=== PATIENT | male | born 1985 | race African-American/Black ===

== ENCOUNTER 2016-04-04 21:26 | Inpatient (IN) | payer MEDICAID ==
[~2016-04-04] VITALS: Ht 177.8 cm; Wt 77.0 kg
[~2016-04-04 21:26] MED LIST: OLAN15TA2 PO
[2016-04-04 22:50] LABS: BASOPHILS % (AUTO) 0.4 % (0.0-2.0); EOSINOPHILS % (AUTO) 3.1 % (1.0-6.0); HEMATOCRIT 38.8 % (41-53); HEMOGLOBIN 12.7 g/dL (13.5-17.5); LYMPHOCYTES # (AUTO) 1.4 K/uL (1.0-4.8); LYMPHOCYTES % (AUTO) 19.3 % (22.0-44.0); MEAN CORPUSCULAR HEMOGLOBIN 28.9 pg (26.0-34.0); MEAN CORPUSCULAR HGB CONC 32.8 G/dL (31.0-37.0); MEAN CORPUSCULAR VOLUME 88 fL (80-100); MONOCYTES # (AUTO) 0.9 K/uL (0.1-1.0); MONOCYTES % (AUTO) 11.7 % (2.0-9.0); NEUTROPHILS # (AUTO) 4.8 K/uL (1.8-7.7); NEUTROPHILS % (AUTO) 65.5 % (40.0-70.0); PLATELET COUNT (AUTO) 211 K/uL (150-450); RED BLOOD CELL COUNT(AUTO) 4.41 MIL/uL (4.50-5.90); RED CELL DISTRIBUTION WIDTH 14.6 % (11.5-14.5); WHITE BLOOD COUNT (AUTO) 7.3 K/uL (4.5-11.0)
[2016-04-04 23:05] LABS: ANION GAP 9 mmol/L (8-16); CARBON DIOXIDE 28 mmol/L (22-29); CHLORIDE 106 mmol/L (98-107); CREATININE 0.97 mg/dL (0.60-1.30); GLOMERULAR FILTR. RATE CALC > 60 mL/min (>60); POTASSIUM 3.9 mmol/L (3.5-5.1); SODIUM SERUM 143 mmol/L (136-145); UREA NITROGEN, BLOOD 17 mg/dL (7-18)
[2016-04-04 23:10] LABS: ALANINE AMINOTRANSFERASE 37 U/L (12-78); ALBUMIN 3.7 g/dL (3.4-5.0); ASPARTATE AMINOTRANSFERASE 29 U/L (15-37); BILIRUBIN,TOTAL 0.1 mg/dL (0.1-1.0); TOTAL PROTEIN, SERUM 7.7 g/dL (6.4-8.2)
[2016-04-04] MEDS ORDERED: DiphenhydrAMINE HCL 50 MG/ML VIAL IM ONE (23:45)
[2016-04-04] MEDS ORDERED: HALOPERIDOL LACTATE 5 MG/ML VIAL IM ONE (23:45)
[2016-04-04] MEDS ORDERED: LORazepam 2 MG/ML VIAL IM ONE (23:45)
[2016-04-05] MEDS ORDERED: OLANZapine 5 MG RAPDIS TABLET PO PRN
[2016-04-05] MEDS ORDERED: ZOLPIDEM TARTRATE 10 MG TABLET PO PRN
[2016-04-05 01:12] VITALS: BP 125/58
[2016-04-05] MEDS ORDERED: INFLUENZA VIRUS VACCINE QVS 2016-17 (3YR+)/PF 60 MCG/0.5 ML SYRINGE IM ONE (03:15)
[2016-04-05 08:16] VITALS: BP 116/68
[2016-04-05] MEDS ORDERED: GuaiFENesin/D-METHORPHAN [SUGAR-FREE] 200-20MG/10 ML SYRUP UDCUP PO PRN (13:15)
[2016-04-05] MEDS ORDERED: HydrOXYzine PAMOATE 50 MG CAPSULE PO PRN (13:15)
[2016-04-05] MEDS ORDERED: ACETAMINOPHEN 325 MG TABLET PO PRN (13:15)
[2016-04-05] MEDS ORDERED: LOPERAMIDE HCL 2 MG CAPSULE PO PRN (13:15)
[2016-04-05] MEDS ORDERED: TUBERCULIN, PURIFIED PROTEIN DERIVATIVE 5 TU/0.1 ML SYG ID ONE (13:15)
[2016-04-05] MEDS ORDERED: MAG HYDROX/AL HYDROX/SIMETH ES 30 ML SUSPENSION UDCUP PO PRN (13:15)
[2016-04-05] MEDS ORDERED: MAGNESIUM HYDROXIDE SUSPENSION 30 ML UDCUP PO PRN (13:15)
[2016-04-05] MEDS ORDERED: PROMETHAZINE HCL 25 MG TABLET PO PRN (13:15)
[2016-04-05 16:27] VITALS: BP 127/71
[2016-04-05] MEDS: THIAMINE HCL 100 MG TABLET PO SCH (17:23)
[2016-04-05] MEDS ORDERED: OLANZapine 5 MG RAPDIS TABLET PO SCH (21:00)
[2016-04-06 07:01] VITALS: BP 114/62
[2016-04-06 08:15] VITALS: BP 108/57
[2016-04-06] MEDS: NALTREXONE HCL 50 MG TABLET PO SCH (10:34)
[2016-04-06] MEDS: THIAMINE HCL 100 MG TABLET PO SCH ×2 (10:34→16:45)
[2016-04-06] MEDS: FOLIC ACID 1 MG TABLET PO SCH (10:34)
[2016-04-06] MEDS: MULTIVITAMINS WITH MINERALS, THERAPEUTIC TABLET PO SCH (10:34)
[2016-04-06] MEDS ORDERED: OLAN10TA22 PO (15:19)
[2016-04-06] MEDS ORDERED: NALT50 PO (15:19)
[2016-04-06 16:15] VITALS: BP 112/67
[2016-04-06] MEDS: LORazepam 2 MG TABLET PO PRN (16:45)
[2016-04-06] MEDS ORDERED: OLANZapine 10 MG RAPDIS TABLET PO SCH (21:00)
[2016-04-07 06:34] VITALS: BP 109/78
[2016-04-07 08:28] VITALS: BP 125/68
[2016-04-07] MEDS: MULTIVITAMINS WITH MINERALS, THERAPEUTIC TABLET PO SCH (08:49)
[2016-04-07] MEDS: NALTREXONE HCL 50 MG TABLET PO SCH (08:49)
[2016-04-07] MEDS: LORazepam 2 MG TABLET PO PRN (08:50)
[2016-04-07] MEDS: FOLIC ACID 1 MG TABLET PO SCH (08:50)
[2016-04-07] MEDS: THIAMINE HCL 100 MG TABLET PO SCH (08:50)
== END 2016-04-07 11:19 | disposition home or self-care (01) | DRG 750 ==
LOC: EMS 21:27 → B3A 23:56
PROVIDERS: ADMIT Psychiatry & Neurology Psychiatry; ATTEND Psychiatry & Neurology Psychiatry
DX: F20.0 Paranoid schizophrenia (principal); F15.20 Other stimulant dependence, uncomplicated; E03.9 Hypothyroidism, unspecified; F90.9 Attention-deficit hyperactivity disorder, unspecified type; F17.210 Nicotine dependence, cigarettes, uncomplicated; F41.0 Panic disorder [episodic paroxysmal anxiety]; D64.9 Anemia, unspecified; F12.20 Cannabis dependence, uncomplicated; Z28.21 Immunization not carried out because of patient refusal; Z91.19 Patient's noncompliance with other medical treatment and regimen; Z79.899 Other long term (current) drug therapy; Z59.0 Homelessness; Z98.890 Other specified postprocedural states; Z72.89 Other problems related to lifestyle
CPT/HCPCS: 90471; 96372; 99285; G0480; J1200; J1630; J2060